=== PATIENT | male | born 1970 | race Caucasian/White ===

== ENCOUNTER 2019-03-19 12:42 | Emergency (ER) | payer OTHER, SELFPAY ==
[2019-03-19 12:50] VITALS: BP 128/73; PULSE 53; RESP 16; TEMP 36.7; O2SAT 96
--- NOTE | 2019-03-19 13:37 | W.ED.GENAD ---
Discharge Plan Disposition Patient Disposition: HOME Condition: Improving Discharge Details Chief Complaint: Laceration Clinical Impression: Laceration of finger of left hand Primary Care Provider: Agustín Roche ED Provider: Jluis Avilez Home Meds and New Rx's Prescriptions: No Action No Known Home Meds RF: 0 Discharge Instructions Instructions: Care For Your Stitches (ED), Finger Laceration (ED) Additional Instructions: Watch for any signs of infection and return immediately if these occur. Otherwise keep wound clean and dry and return to the emergency department in 12 days for suture removal. Referrals: [facility] Emergency Dept. [Outside] (In 12 days for suture removal) Discharge Data Discharge Date/Time-TO BE ENTERED AT DEPARTURE: 03/19/19 14:12 Medical Decision Making Left index finger laceration, approximately 1 hour prior to arrival, patient unsure of tetanus status. Patient has 1.5 cm laceration to the distal aspect of the left index finger that at the distal end of the wound does approach the nailbed but no nailbed injury noted. Digital block technique was utilized after verbal consent obtained. Thorough irrigation and wound cleansed cleansing was performed and wound was visualized to base in bloodless field and shows no deep structure injury contamination or foreign body. #5 5-0 Prolene sutures used to approximate wound edge. Wound covered with bacitracin and sterile gauze. Patient tolerated procedure well. Return precautions discussed. Patient to return in 12 days for suture removal. After discussion of diagnosis and plan of care patient has no further needs, questions, or concerns and states clear understanding to return to the emergency department for any worsening symptoms. HPI General Mode of arrival: ambulatory. Date/Time Provider Initiated Documentation: 03/19/19 12:53. Limitations to Documentation: no limitations. Information obtained by: patient and RN notes reviewed. History of Present Illness 48 year old M presents to the emergency department with the chief complaint of Left index finger laceration, described as mild, with intensity rated at 1. Quality is described as sharp, and is localized to the left and upper extremity. Patient started experiencing this hour(s) (1) and it has been constant. Patient notes no other symptoms.. Patient did receive the following treatments prior to arrival, none Related Data Home Medications Medication Instructions Recorded Confirmed Unknown [No Known Home Meds] 03/19/19 03/19/19 Allergies Allergy/AdvReac Type Severity Reaction Status Date / Time No Known Allergies Allergy Unverified 03/19/19 12:52 General Stated Complaint: Laceration JAMARCUS: 4 Review of Systems Musculoskeletal Denies deformity, Denies limited range of motion and Denies numbness Integumentary/Breasts Reports as per HPI Neurologic Denies numbness and Denies paresthesias [facility] Medical History (Updated 03/19/19 @ 12:52 by Christen Steele) No acute medical problems (Acute) Social History Smoking/Tobacco Use Status: Never Alcohol Intake: current Alcohol Intake frequency: a few times a week Alcohol type: beer, wine and hard liquor Drug use: Never Substance use type: does not use Do you feel safe at home: Yes Do you feel safe in your relationship?: Yes Exam Const General: cooperative and no acute distress Orientation: alert, awake and oriented x3 Limitations: mental status not altered Resp Effort & Inspection: normal respiratory effort and able to speak in complete sentences Cardio Rate: regular rate Rhythm: regular rhythm Skin Trauma: laceration (1.5cm) left distal 2nd finger linear, flap, actively bleeding, involves subcutaneous tissue, motor nerve function intact and sensation intact; no pulsatile bleeding, no foreign bodies present and not contaminated Course Vital Signs Temperature 36.7 C 03/19/19 12:50 Pulse 53 L 03/19/19 12:50 Respiratory Rate 16 03/19/19 12:50 Blood Pressure 128/73 03/19/19 12:50 Pulse Oximetry 96 03/19/19 12:50 Temperature 36.7 C 03/19/19 12:50 Temperature Source Skin 03/19/19 12:50 Pulse 53 L 03/19/19 12:50 Respiratory Rate 16 03/19/19 12:50 Respiratory Effort Non-Labored 03/19/19 12:52 Blood Pressure 128/73 03/19/19 12:50 Pulse Oximetry 96 03/19/19 12:50 Pain Level 1 03/19/19 12:50
== END 2019-03-19 14:12 | disposition home or self-care (01) ==
LOC: ER 13:45
PROVIDERS: Emergency Provider Nurse Practitioner Family; PCP Internal Medicine
DX: S61.211A Laceration without foreign body of left index finger without damage to nail, initial encounter (principal); W26.0XXA Contact with knife, initial encounter
CPT/HCPCS: 12001; 90471

== ENCOUNTER 2019-03-31 08:34 | Outpatient (CLI) | payer OTHER, SELFPAY ==
--- NOTE | 2019-03-31 09:04 | DI.RAD_ITS ---
SYMPTOM/DIAGNOSIS: PELVIC PAIN R10.2 AP PELVIS: 03/31 Single AP view of the pelvis was obtained. There are minimal degenerative changes of the hips with slight acetabular spurring and perhaps slight narrowing of cartilaginous joint spaces superiorly. No other bony abnormality seen.
== END 2019-03-31 08:54 ==
PROVIDERS: PCP Internal Medicine; Visit Provider Nurse Practitioner Family
DX: R10.2 Pelvic and perineal pain (principal); M16.0 Bilateral primary osteoarthritis of hip
CPT/HCPCS: 72170

== ENCOUNTER 2019-04-01 09:39 | Outpatient (REF) | payer OTHER, SELFPAY ==
[2019-04-04 14:32] LABS: PSA, Diagnostic 0.3 ng/ml (0-2.5)
== END 2019-04-01 09:59 ==
LOC: NCHCN 09:39
PROVIDERS: PCP Internal Medicine; Visit Provider Nurse Practitioner Family
DX: R31.1 Benign essential microscopic hematuria (principal)
CPT/HCPCS: 84153

== ENCOUNTER 2019-05-12 11:29 | Outpatient (REF) | payer OTHER, SELFPAY ==
[2019-05-12 13:55] LABS: ALT 42 U/L (16-63); AST 25 U/L (15-37); Calculated LDL 125 mg/dL; Cholesterol 190 mg/dL (50-200); HDL Cholesterol 34 mg/dL (40-60); Triglyceride 156 mg/dL (30-150)
== END 2019-05-12 11:49 ==
LOC: NCHCN 11:29
PROVIDERS: PCP Internal Medicine; Visit Provider Nurse Practitioner Family
DX: Z00.00 Encounter for general adult medical examination without abnormal findings (principal); Z13.220 Encounter for screening for lipoid disorders
CPT/HCPCS: 80061; 84450; 84460

== ENCOUNTER 2020-02-10 21:46 | Outpatient (REF) | payer OTHER, SELFPAY ==
[2020-02-10 20:41] LABS: Bilirubin Negative (Negative); Blood Small (Negative); Clarity Clear (Clear); Glucose Negative (Negative); Ketones Negative (Negative); Leukocyte Esterase Negative (Negative); Nitrite Negative (Negative); Urobilinogen 0.2 EU/dL (Up TO 0.2); pH 5.5 (5-8)
[2020-02-10 20:51] LABS: Bacteria Negative HPF (Negative); C & S Indicated? No; Casts Negative LPF (Negative); Crystals Negative HPF (Negative); Epithelial Cells Rare HPF (Negative); Mucus Negative (Negative); RBC 0-2 HPF (0-2); WBC 0-2 HPF (0-5)
== END 2020-02-10 22:06 ==
LOC: NCHCN 21:46
PROVIDERS: PCP Internal Medicine; Visit Provider Internal Medicine
DX: M54.89 Other dorsalgia (principal)
CPT/HCPCS: 81003; 81015

== ENCOUNTER 2020-02-20 01:16 | Outpatient (CLI) | payer OTHER, SELFPAY ==
--- NOTE | 2020-02-20 | DI.RAD_ITS ---
EXAM: XR LUMBAR SPINE COMPLETE CLINICAL HISTORY: LUMBAR BACK PAIN, M54.5 TECHNIQUE: COMPARISON: No exams were available for comparison FINDINGS: Five views were obtained. The intervertebral disc spaces are fairly well maintained except for sligh t loss of height of L5-S1 disc space. There are mild per trophic degenerative changes of the vertebral endplates and facet joints throughou t the lumbar region. There is no evidence of spondylolysis or spondylolisthesis. No other significa nt bony abnormality seen. SI joints appear intact. Slight right convex lumbar scoliosis noted. IMPRESSION: Mild degenerative changes, examination is otherwise unremarkable.
== END 2020-02-20 01:36 ==
PROVIDERS: PCP Internal Medicine; Visit Provider Internal Medicine
DX: M51.36 Other intervertebral disc degeneration, lumbar region (principal)
CPT/HCPCS: 72110

== ENCOUNTER 2020-08-10 16:50 | Outpatient (REF) | payer OTHER, SELFPAY ==
[2020-08-10 20:44] LABS: Bilirubin Negative (Negative); Blood Small (Negative); Clarity Clear (Clear); Glucose Negative (Negative); Ketones Negative (Negative); Leukocyte Esterase Negative (Negative); Nitrite Negative (Negative); Urobilinogen 0.2 EU/dL (Up TO 0.2)
[2020-08-10 21:03] LABS: Bacteria Negative HPF (Negative); Crystals Negative HPF (Negative); Epithelial Cells Rare HPF (Negative); Mucus Negative (Negative); WBC 0-2 HPF (0-5)
[2020-08-10 21:04] LABS: C & S Indicated? No; Casts Negative LPF (Negative)
== END 2020-08-10 17:10 ==
LOC: NCHCN 16:50
PROVIDERS: PCP Internal Medicine; Visit Provider Internal Medicine
DX: R31.21 Asymptomatic microscopic hematuria (principal)
CPT/HCPCS: 81003; 81015

== ENCOUNTER 2023-10-02 16:40 | Outpatient (REF) | payer OTHER, SELFPAY ==
[2023-10-02 21:55] LABS: ALT 46 U/L (16-63); AST 26 U/L (15-37); Albumin 4.5 g/dL (3.4-5.0); Alkaline Phosphatase 106 U/L (46-116); Anion Gap 10.9 mmol/L (3-11); BUN 13 mg/dL (7-18); Bilirubin, Total 0.6 mg/dL (0.2-1.0); CO2 28.1 mmol/L (21.0-32.0); Calcium 9.5 mg/dL (8.5-10.1); Calculated LDL 166 mg/dL (<100); Chloride 105 mmol/L (98-107); Cholesterol 249 mg/dL (<200); Glucose 90 mg/dL (74-106); HDL Cholesterol 45 mg/dL (40-60); Potassium 4.5 mmol/L (3.5-5.1); Sodium 144 mmol/L (136-145); TSH (W/Ref FT4) 1.83 uIU/mL (0.36-3.74); Total Protein 8.2 g/dL (6.4-8.2); Triglyceride 192 mg/dL (<150)
[2023-10-02 22:07] LABS: Vitamin D 25 Total 17.1 ng/mL (30-100)
[2023-10-02 22:19] LABS: Uric Acid 6.7 mg/dL (3.5-7.2)
[2023-10-05 09:16] LABS: PSA, Screening 0.4 ng/mL (<=3.5)
== END 2023-10-02 16:41 | disposition home or self-care (01) ==
LOC: NCHCN 16:40
PROVIDERS: PCP Family Medicine; Visit Provider Family Medicine
DX: R10.9 Unspecified abdominal pain (principal); R00.0 Tachycardia, unspecified; R07.9 Chest pain, unspecified
CPT/HCPCS: 80053; 80061; 82306; 84153; 84443; 84550

== ENCOUNTER 2024-10-14 16:02 | Outpatient (REF) | payer OTHER, SELFPAY ==
[2024-10-14 16:49] LABS: HCT 49.6 % (40.0-50.0); HGB 16.9 g/dL (13.5-17.5); MCH 30.1 pg (27.0-33.0); MCHC 34.1 % (32.0-36.0); MCV 88 fL (80-95); MPV 11.7 fL (8.0-11.0); Platelet Count 169 10^3/uL (130-400); RBC 5.61 10^6/uL (4.36-5.78); RDW 12.9 % (11.8-14.1); RDW-SD 41.8 fL; WBC 4.88 10^3/uL (4.4-10.8)
[2024-10-14 17:15] LABS: ALT 40 U/L (16-63); AST 29 U/L (15-37); Albumin 4.1 g/dL (3.4-5.0); Alkaline Phosphatase 150 U/L (46-116); Anion Gap 9.1 mmol/L (3-11); BUN 15 mg/dL (7-18); Bilirubin, Total 0.3 mg/dL (0.2-1.0); CO2 26.9 mmol/L (21.0-32.0); Calcium 9.5 mg/dL (8.5-10.1); Chloride 107 mmol/L (98-107); Cholesterol 246 mg/dL (<200); Estimated GFR 88.88 (mL/min/1.73m2); Glucose 118 mg/dL (74-106); HDL Cholesterol 39 mg/dL (>or=40); Potassium 4.8 mmol/L (3.5-5.1); Sodium 143 mmol/L (136-145); TSH (W/Ref FT4) 2.08 uIU/mL (0.36-3.74); Total Protein 7.6 g/dL (6.4-8.2); Triglyceride 401 mg/dL (<150)
[2024-10-14 17:43] LABS: LDL CHOLESTEROL 150 mg/dL (<100)
== END 2024-10-14 16:03 | disposition home or self-care (01) ==
LOC: NCHCN 16:02
PROVIDERS: PCP Family Medicine; Visit Provider Nurse Practitioner Family
DX: R07.9 Chest pain, unspecified (principal); K76.0 Fatty (change of) liver, not elsewhere classified
CPT/HCPCS: 80053; 80061; 83721; 85027; 84443

== ENCOUNTER 2024-11-03 00:25 | Outpatient (CLI) | payer OTHER, SELFPAY ==
--- NOTE | 2024-11-03 | ETT_ITS ---
APPROVED REPORT Exam: Exercise Treadmill Patient Location: Out-Patient Room/Bed: Stress Nurse: Iza Robins RN Ordering Provider:ARETHA THOMASON, Contact Number: [phone] BMI: 29.67 Baseline Rhythm: Sinus Bradycardia Indications: Chest pain Medical History Medical History: Low back pain, tachycardia Cardiac Medications: None Allergies: NKDA Cardiac Risk Factors: Former smoker Previous Cardiac Procedures: Former smoker Pretest Chest Pain Characteristics: None Exercise History: Physically active Physical Disabilities: None Lung Sounds: Clear to auscultation Heart Sounds: Regular Stress Test Details Test: Exercise stress testing was performed using a Harry protocol. Rest Stress HR Resting HR Supine: 52 bpm Max Heart Rate (APMHR): 165 bpm Resting HR Standin bpm Target HR (85% APMHR): 140 bpm Max HR Achieved: 145 bpm % of APMHR: 88 Recovery HR: 69 bpm HR response to stress: Normal HR response to stress BP Resting BP Supine: 138/72 mmHg Resting BP Standin/68 mmHg Max BP: 220/86 mmHg Recovery BP: 160/68 mmHg BP response to stress: hypertensive response to stress. ECG Resting ECG: Sinus Bradycardia Stress ECG: Sinus Tachycardia ST Change: No significant ST segment changes noted Arrhythmia: Rare PAC Recovery ECG: Sinus Rhythm Recovery ST Change: No significant ST segment changes noted Recovery Arrhythmia: Rare PVC Clinical Reason for Termination: Target HR Achieved Stress Symptoms: None Exercise duration: 8 min59 sec Highest Stage Reached: Stage 4: 4.2 mph at 16% grade. Exercise capacity: 12 METs Angina Score: None Holley Treadmill Score: 8.8 Rate Pressure Product: [id number] Stress ECG Conclusion 1. Resting electrocardiogram was normal 2. Patient exercised on the Harry protocol and completed a workload of 12 METS 3. Normal heart rate response to exercise. Hypertensive blood pressure response to exercise. The pa tient achieved 88% of maximal predicted heart rate for age 4. There was no electrocardiographic evidence of myocardial ischemia 5. There were no significant dysrhythmias Holley Treadmill Score is 8.8 which is Low risk. Stress Test Summary STAGE Time (mins) Speed (mph) Grade (%) HR BP SpO2 SYMPTOMS METS Supine 52 138/72 96% Standing 49 130/68 1 3 1.7 10 88 164/74 Rare PAC 4.5 2 6 2.5 12 111 210/92 7 3 9 3.4 14 143 220/86 10 1 min recovery 108 240/60 98% Rare PVC 3 min recovery 74 208/42 6 min recovery 69 160/68 97%
== END 2024-11-03 00:45 ==
LOC: DI 00:25
PROVIDERS: PCP Family Medicine; Visit Provider Internal Medicine Cardiovascular Disease
DX: R07.9 Chest pain, unspecified (principal)
CPT/HCPCS: 93017